=== PATIENT | male | born 1940 | race Caucasian/White ===

== ENCOUNTER 2023-06-19 14:14 | Emergency (ER) | payer OTHER ==
[~2023-06-19] VITALS: Ht 193 cm; Wt 113.4 kg
[~2023-06-19 14:14] MED LIST: ALLO100 PO; AMOCLA875 PO; BENMENLOZ PO; COLCHICINE0.6 MG PO; DUTA.5 PO; ELIQUIS5 M2 PO; Flonase 0.05% N16 GM; HYDCHL25 PO; PRED20 PO
[2023-06-19 16:15] VITALS: BP 148/76
== END 2023-06-19 16:28 | disposition home or self-care (01) ==
LOC: ER 14:14
DX: S61.216A Laceration without foreign body of right little finger without damage to nail, initial encounter (principal); Z88.1 Allergy status to other antibiotic agents; Z79.899 Other long term (current) drug therapy; I48.91 Unspecified atrial fibrillation; Z79.01 Long term (current) use of anticoagulants; M10.9 Gout, unspecified; W45.8XXA Other foreign body or object entering through skin, initial encounter
CPT/HCPCS: 12001; 99283-25